=== PATIENT | female | born 1965 | race Caucasian/White ===

== ENCOUNTER 2020-12-01 10:00 | Outpatient (RCR) | payer MEDICARE, BC ==
[2020-11-29 14:22] VITALS: BP 117/60; PULSE 97; TEMP 97.5
[2020-11-30 10:22] VITALS: BP 132/79; PULSE 103; TEMP 98.5
[~2020-12-01] VITALS: Wt 84.6 kg
[2020-12-01 09:58] VITALS: BP 126/58; PULSE 105; TEMP 97.9
[~2020-12-01 10:00] MED LIST: AMITRIPTYLINE H25 M1 PO; B12 SHOT; LEVOXYL0.025 MG PO; LEXAPRO 10MG10 MG PO; LIPITOR 10MG10 MG PO; NORVASC 5MG5 MG/TAB PO; NYSTATIN OR100 MU/ML PO; PRILOSEC 20MG20 MG PO; REGLAN; STIVARGA PO; TPN IV; ULTRAM 50MG TAB50 MG PO; WELLBUTRIN SR150 M1 PO; XARELTO20 MG PO; ZOFRAN ODT4 MG PO; [UNRECOGNIZED DRUG - OTHER]
--- NOTE | 2020-12-01 10:43 | NUR ---
infusion completed, picc flushed as ordered, pt then discharged amb.
== END 2020-12-01 10:45 | disposition home or self-care (01) ==
LOC: EUO 10:00
DX: C20 Malignant neoplasm of rectum (principal); E86.0 Dehydration; I95.1 Orthostatic hypotension; R00.0 Tachycardia, unspecified
CPT/HCPCS: J1644; J7030